=== PATIENT | female | born 1950 | race Two or more races ===

== ENCOUNTER 2024-09-25 09:56 | Emergency (ER) | payer MEDICARE, OTHER ==
[~2024-09-25] VITALS: Ht 167.6 cm; Wt 76.4 kg
[2024-09-25] MEDS ORDERED: ATEN-73 PO (10:02)
[2024-09-25] MEDS ORDERED: LOSA100T59 PO (10:02)
[2024-09-25] MEDS ORDERED: LEVO112T7 PO (10:02)
[2024-09-25] MEDS ORDERED: NIFE-78 PO (10:02)
[2024-09-25] MEDS ORDERED: FOLI-130 PO (10:02)
[2024-09-25] MEDS ORDERED: METH2.5T6 PO (10:02)
[2024-09-25 10:39] LABS: APPEARANCE,URINE HAZY (CLEAR); BILIRUBIN,URINE NEGATIVE (NEGATIVE); COLOR,URINE LIGHT YELLOW (YELLOW); GLUCOSE, URINE (UA) NEGATIVE (NEGATIVE); KETONES,URINE NEGATIVE (NEGATIVE); LEUKOCYTE ESTERASE ,URINE LARGE (NEGATIVE); NITRATE,URINE NEGATIVE (NEGATIVE); OCCULT BLOOD,URINE NEGATIVE (NEGATIVE); PH,URINE 5.5 (5.0-8.0); PROTEIN,URINE NEGATIVE (NEGATIVE); SPECIFIC GRAVITIY, URINE 1.009 (1.003-1.030); UROBILINOGEN,URINE <=1.0 mg/dL (<=1.0)
[2024-09-25 10:56] LABS: BACTERIA,URINE Many /HPF (None Seen); RBC,URINE None Seen /HPF (0-2); SQUAMOUS EPITHELIAL CELL,UR Rare /LPF (None Seen)
[2024-09-25] MEDS ORDERED: PHEN-846 PO (11:49)
[2024-09-25] MEDS ORDERED: CEPH-558 PO (11:49)
[2024-09-25] MEDS: CefTRIAXone SODIUM 1 GM/VIAL IM ONE (11:54)
[2024-09-25] MEDS: LIDOCAINE/PF 1% 2 ML VIAL IM ONE (11:54)
[2024-09-25 12:00] VITALS: BP 141/81; PULSE 71; RESP 16; TEMP 98.3; O2SAT 96
== END 2024-09-25 12:28 | disposition home or self-care (01) ==
LOC: EMS 09:56
DX: N39.0 Urinary tract infection, site not specified (principal); I10 Essential (primary) hypertension; E03.9 Hypothyroidism, unspecified; Z79.899 Other long term (current) drug therapy; Z90.710 Acquired absence of both cervix and uterus; Z90.49 Acquired absence of other specified parts of digestive tract
CPT/HCPCS: 99284; 81001; 87077; 87086; 87186; 96372; J0696; J3490

== ENCOUNTER 2024-10-05 11:12 | Emergency (ER) | payer MEDICARE, OTHER ==
[~2024-10-05] VITALS: Ht 154.9 cm; Wt 54.5 kg
[~2024-10-05 11:12] MED LIST: ATEN-73 PO; CEPH-558 PO; FOLI-130 PO; LEVO112T7 PO; LOSA100T59 PO; METH2.5T6 PO; NIFE-78 PO; PHEN-846 PO
[2024-10-05 11:29] VITALS: TEMP 98.1
[2024-10-05 15:15] VITALS: BP 101/74; PULSE 77; RESP 17; O2SAT 98
[2024-10-05] MEDS: DICLOFENAC SODIUM 1% 100 GM GEL [4GM] TP ONE (16:10)
== END 2024-10-05 16:24 | disposition home or self-care (01) ==
LOC: EMS 11:12
DX: M25.561 Pain in right knee (principal); I10 Essential (primary) hypertension; E03.9 Hypothyroidism, unspecified; Z90.49 Acquired absence of other specified parts of digestive tract; Z90.710 Acquired absence of both cervix and uterus; Z79.899 Other long term (current) drug therapy
CPT/HCPCS: 99283

== ENCOUNTER 2024-12-03 15:01 | Emergency (ER) | payer MEDICARE, OTHER ==
[~2024-12-03] VITALS: Ht 167.6 cm; Wt 71.0 kg
[~2024-12-03 15:01] MED LIST changes: -CEPH-558 PO; -METH2.5T6 PO; -PHEN-846 PO
[2024-12-03 15:11] VITALS: BP 133/91; PULSE 84; RESP 18; TEMP 99; O2SAT 98
[2024-12-03] MEDS ORDERED: BACI28.410 TP (16:00)
[2024-12-03] MEDS: BACITRACIN 0.9 GM PACKET OINTMENT TP ONE (16:07)
[2024-12-03] MEDS: ACETAMINOPHEN 500 MG TABLET PO ONE (16:07)
== END 2024-12-03 16:16 | disposition home or self-care (01) ==
LOC: EMS 15:01
DX: S50.12XA Contusion of left forearm, initial encounter (principal); S50.812A Abrasion of left forearm, initial encounter; I10 Essential (primary) hypertension; E03.9 Hypothyroidism, unspecified; M19.90 Unspecified osteoarthritis, unspecified site; Z90.49 Acquired absence of other specified parts of digestive tract; Z90.710 Acquired absence of both cervix and uterus; Z79.890 Hormone replacement therapy; Z79.899 Other long term (current) drug therapy; X58.XXXA Exposure to other specified factors, initial encounter; Y93.89 Activity, other specified; Y92.89 Other specified places as the place of occurrence of the external cause; Y99.8 Other external cause status
CPT/HCPCS: 99283